=== PATIENT | male | born 1990 | race African-American/Black ===

== ENCOUNTER 2019-11-23 11:32 | Inpatient (IN) | payer OTHER ==
[2019-11-23 13:14] VITALS: BMI 31.8
--- NOTE | 2019-11-23 13:53 | HP ---
CIWA Score Nausea/Vomitin-Mild Nausea/No Vomiting Muscle Tremors: 2 Anxiety: 1-Mildly Anxious Agitation: 1-Slight > Activity Paroxysmal Sweats: No Perspiration Orientation: 0-Oriented Tacttile Disturbances: 0-None Auditory Disturbances: 0-None Visual Disturbances: 0-None - Admission Criteria OASAS Guidelines: Admission for Medically Managed Detox: Requires at least one of the followin. CIWA greater than 12 2. Seizures within the past 24 hours 3. Delirium tremens within the past 24 hours 4. Hallucinations within the past 24 hours 5. Acute intervention needed for co occurring medical disorder 6. Acute intervention needed for co occurring psychiatric disorder 7. Severe withdrawal that cannot be handled at a lower level of care (continued vomiting, continued diarrhea, abnormal vital signs) requiring intravenous medication and/or fluids 8. Admission [facility] Chief Complaint: alcohol detox Allergies/Adverse Reactions: Allergies Allergy/AdvReac Type Severity Reaction Status Date / Time Penicillins Allergy Difficulty Verified 11/23/19 13:15 Breathing vancomycin Allergy Hives Verified 11/23/19 13:15 History of Present Illness: 29yo with long h/o AUD, states started drinking at the age of 12, and steadily increased intake since age of 20. 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 Lives alone. Has medicare insurance. First time heree. First time to detox. Has been to AA meetings. PMH: myotonic Muscular dystrophy, asthma, kidney, hydradenitis occ, past h/o epilepsy PCP- Dr. Prieto Meds: albuterol, symbicort and Testosterone female to male transgender Alcohol- 1 pint to 1/5 day of cognac and whiskey, no alcohol related seizures/DT 's MJ: occ oxycontin- illicitly - Ebola screening Have you traveled outside of the country in the last 21 days: No Have you had contact with anyone from an Ebola affected area: No Do you have a fever: No - Review of Systems Constitutional: No Symptoms Reported EENT: reports: No Symptoms Reported Respiratory: reports: No Symptoms reported Cardiac: reports: No Symptoms Reported GI: reports: No Symptoms Reported : reports: No Symptoms Reported Musculoskeletal: reports: No Symptoms Reported Integumentary: reports: No Symptoms Reported Neuro: reports: No Symptoms reported Endocrine: reports: No Symptoms Reported Hematology: reports: No Symptoms Reported Psychiatric: reports: No Sypmtoms Reported Other Systems: Reviewed and Negative Patient History - Patient Medical History Hx Asthma: Yes Hx Hepatitis C: No Hx Depression: Yes Other Medical History: muscular dystrophy, PTSD - PPD History PPD to be Administered?: Yes - Smoking Cessation Smoking history: Never smoked - Substance & Tx. History Hx Alcohol Use: Yes Hx Substance Use: No Hx Substance Use Treatment: Yes - Substances abused Alcohol Substance route: Oral Frequency: Daily Amount used: 1pint -5th of whiskey/garland Age of first use: 12 Date of last use: 11/23/19 Marijuana/Hashish Substance route: Smoking Frequency: 1-2 times per week Amount used: 2 blunts Age of first use: 11 Date of last use: 11/09/19 Admission Physical Exam BHS - Vital Signs Vital Signs: Vital Signs - 24 hr 11/23/19 13:02 Temperature 97.5 F L Pulse Rate 95 H Respiratory 18 Rate Blood Pressure 148/96 - Physical General Appearance: Yes: Within Normal Limits HEENTM: Yes: Within Normal Limits Respiratory: Yes: Within Normal Limits, Lungs Clear Neck: Yes: Within Normal Limits Cardiology: Yes: Within Normal Limits, Regular Rate Abdominal: Yes: Within Normal Limits, Non Tender Back: Yes: Within Normal Limits, Normal Inspection Musculoskeletal: Yes: Within Normal Limits, full range of Motion, Gait Steady Neurological: Yes: Fully Oriented, Alert Integumentary: Yes: Other (small hydradentis lesions in L axilla- minimal drainage) Lymphatic: Yes: Other (small hydradentis lesions in L axilla) - Diagnostic (1) Alcohol use disorder Current Visit: Yes Status: Acute (2) Hydradenitis Current Visit: Yes Status: Acute (3) Muscular dystrophy Current Visit: Yes Status: Acute (4) Asthma Current Visit: Yes Status: Acute (5) Marijuana smoker, episodic Current Visit: Yes Status: Acute Breathalyzer - Breathalyzer Breathalyzer: 0.037 Urine Drug Screen - Test Device Lot number: [id number] Expiration date: 08/17/21 - Control Is test valid?: Yes - Results Drug screen NEGATIVE: No Urine drug screen results: THC-Marijuana, OXY-Oxycodone Inpatient Rehab Admission - Rehab Decision to Admit Inpatient rehab admission?: No
[2019-11-23] MEDS ORDERED: ACETAMINOPHEN 325 MG TABLET (FP) PO PRN ×2 (14:03)
[2019-11-23] MEDS ORDERED: chlordiazePOXIDE HCL 25 MG CAPSULE PO PRN (14:03)
[2019-11-23] MEDS ORDERED: MAGNESIUM CITRATE 300 ML BOTTLE PO PRN (14:03)
[2019-11-23] MEDS ORDERED: MAGNESIUM HYDROX 2400MG/30ML ORAL SUSPENSION 30 ML CUP PO PRN (14:03)
[2019-11-23] MEDS ORDERED: BISMUTH SUBSALICYLATE 524 MG/30 ML UD PO PRN (14:03)
[2019-11-23] MEDS ORDERED: MAG HYDROX/AL HYDROX/SIMETH 30 ML UNIT-DOSE CUP PO PRN (14:03)
[2019-11-23] MEDS ORDERED: IBUPROFEN 400 MG TABLET (FP) PO PRN (14:03)
[2019-11-23] MEDS ORDERED: MENTHOL/PHENOL 1 EACH UD MM PRN (14:03)
[2019-11-23] MEDS ORDERED: chlordiazePOXIDE HCL 25 MG CAPSULE PO ONE (16:30)
[2019-11-23] MEDS: ALBUTEROL SO4 8 GM HFA INHALER IH PRN (20:45)
[2019-11-23] MEDS: chlordiazePOXIDE HCL 25 MG CAPSULE PO SCH (22:17)
[2019-11-23] MEDS: MELATONIN 5 MG TABLETS PO PRN (22:18)
[2019-11-23] MEDS: THIAMINE HCL 100 MG TABLET (FP) PO SCH (22:18)
[2019-11-23] MEDS: BUDESONIDE/FORMETEROL FUMARATE 160/4.5 mcg INHALER IH SCH (22:41)
[2019-11-24] MEDS: chlordiazePOXIDE HCL 25 MG CAPSULE PO SCH ×4 (06:01→22:08)
[2019-11-24] MEDS: BUDESONIDE/FORMETEROL FUMARATE 160/4.5 mcg INHALER IH SCH ×2 (09:03→22:07)
[2019-11-24] MEDS: PRENATAL VITAMINS W/ FOLIC ACID TABLET (FP) PO SCH (09:03)
--- NOTE | 2019-11-24 09:18 | PN ---
S CIWA - CIWA Score Nausea/Vomitin-Mild Nausea/No Vomiting Muscle Tremors: 1-None Visible, but [place] Anxiety: 0-No Anxiety, at Ease Agitation: 0-Normal Activity Paroxysmal Sweats: No Perspiration Orientation: 0-Oriented Tacttile Disturbances: 0-None Auditory Disturbances: 0-None Visual Disturbances: 0-None Headache: 0-None Present CIWA-Ar Total Score: 2 BHS Progress Note (SOAP) Subjective: pt states librium 50mg too strong for him- making him lethargic O: Vital Signs - 24 hr 11/23/19 11/23/19 11/23/19 13:02 17:05 21:21 Temperature 97.5 F L 97.7 F 98.1 F Pulse Rate 95 H 97 H 104 H Respiratory 18 18 18 Rate Blood Pressure 148/96 150/98 146/86 11/24/19 11/24/19 11/24/19 00:30 03:30 06:25 Temperature 97.3 F L Pulse Rate 67 Respiratory 18 18 18 Rate Blood Pressure 107/68 labs pending a/p: AUD- continue detox protocol- decreased librium dose to 25 mg prn pain meds
[2019-11-24 09:38] LABS: BASO % 0.7 % (0-2.0); EOS % 8.3 % (0-4.5); HEMATOCRIT 48.3 % (35.4-49); HEMOGLOBIN 15.8 GM/dL (11.7-16.9); LYMPH % 37.2 % (8-40); MCH 28.6 pg (25.7-33.7); MCHC 32.7 g/dl (32.0-35.9); MEAN CELL VOLUME 87.5 fl (80-96); MEAN PLT VOLUME 7.9 fl (7.5-11.1); MONO % 6.6 % (3.8-10.2); NEUT % 47.2 % (42.8-82.8); PLATELET COUNT 181 K/MM3 (134-434); RBC 5.52 M/mm3 (4.00-5.60); RDW 12.9 % (11.9-15.9); WHITE BLOOD COUNT 4.2 K/mm3 (4.0-10.0)
[2019-11-24 11:07] LABS: ALBUMIN 3.6 g/dl (3.4-5.0); BILIRUBIN,TOTAL 0.8 mg/dL (0.2-1); BLOOD UREA NITROGEN 9.1 mg/dL (7-18); CALCIUM 9.7 mg/dL (8.5-10.1); CREATININE 0.7 mg/dL (0.55-1.3); POTASSIUM 3.7 mmol/L (3.5-5.1); TOT PROT 6.9 g/dl (6.4-8.2)
[2019-11-24] MEDS: THIAMINE HCL 100 MG TABLET (FP) PO SCH (22:08)
[2019-11-24] MEDS: MELATONIN 5 MG TABLETS PO PRN (22:08)
[2019-11-25] MEDS: chlordiazePOXIDE HCL 25 MG CAPSULE PO SCH ×4 (05:37→22:03)
[2019-11-25] MEDS: ALBUTEROL SO4 8 GM HFA INHALER IH PRN (05:38)
[2019-11-25] MEDS: PRENATAL VITAMINS W/ FOLIC ACID TABLET (FP) PO SCH (10:31)
[2019-11-25] MEDS: BUDESONIDE/FORMETEROL FUMARATE 160/4.5 mcg INHALER IH SCH ×2 (10:31→22:02)
--- NOTE | 2019-11-25 11:12 | PN ---
S CIWA - CIWA Score Nausea/Vomitin-Mild Nausea/No Vomiting Muscle Tremors: 2 Anxiety: 2 Agitation: 2 Paroxysmal Sweats: No Perspiration Orientation: 0-Oriented Tacttile Disturbances: 1-Very Mild Itch/Numbness Auditory Disturbances: 0-None Visual Disturbances: 0-None Headache: 1-Very Mild CIWA-Ar Total Score: 9 S Progress Note (SOAP) Subjective: alert,irritable,anxious,interrupted sleep,tremor Objective: 11/25/19 11:10 Vital Signs Temperature 97.7 F 11/25/19 09:15 Pulse Rate 84 11/25/19 09:15 Respiratory Rate 18 11/25/19 09:15 Blood Pressure 123/69 11/25/19 09:15 O2 Sat by Pulse Oximetry (%) Laboratory Last Values WBC 4.2 K/mm3 (4.0-10.0) 11/24/19 08:00 RBC 5.52 M/mm3 (4.00-5.60) 11/24/19 08:00 Hgb 15.8 GM/dL (11.7-16.9) 11/24/19 08:00 Hct 48.3 % (35.4-49) 11/24/19 08:00 MCV 87.5 fl (80-96) 11/24/19 08:00 MCH 28.6 pg (25.7-33.7) 11/24/19 08:00 MCHC 32.7 g/dl (32.0-35.9) 11/24/19 08:00 RDW 12.9 % (11.9-15.9) 11/24/19 08:00 Plt Count 181 K/MM3 (134-434) 11/24/19 08:00 MPV 7.9 fl (7.5-11.1) 11/24/19 08:00 Absolute Neuts (auto) 2.0 K/mm3 (1.5-8.0) 11/24/19 08:00 Neutrophils % 47.2 % (42.8-82.8) 11/24/19 08:00 Lymphocytes % 37.2 % (8-40) 11/24/19 08:00 Monocytes % 6.6 % (3.8-10.2) 11/24/19 08:00 Eosinophils % 8.3 % (0-4.5) H 11/24/19 08:00 Basophils % 0.7 % (0-2.0) 11/24/19 08:00 Nucleated RBC % 0 % (0-0) 11/24/19 08:00 Sodium 136 mmol/L (136-145) 11/24/19 08:00 Potassium 3.7 mmol/L (3.5-5.1) 11/24/19 08:00 Chloride 101 mmol/L (98-107) 11/24/19 08:00 Carbon Dioxide 27 mmol/L (21-32) 11/24/19 08:00 Anion Gap 7 MMOL/L (8-16) L 11/24/19 08:00 BUN 9.1 mg/dL (7-18) 11/24/19 08:00 Creatinine 0.7 mg/dL (0.55-1.3) 11/24/19 08:00 Est GFR (CKD-EPI)AfAm 146.77 11/24/19 08:00 Est GFR (CKD-EPI)NonAf 126.64 11/24/19 08:00 Random Glucose 87 mg/dL (74-106) 11/24/19 08:00 Calcium 9.7 mg/dL (8.5-10.1) 11/24/19 08:00 Total Bilirubin 0.8 mg/dL (0.2-1) 11/24/19 08:00 AST 87 U/L (15-37) H 11/24/19 08:00 ALT 142 U/L (13-61) H 11/24/19 08:00 Alkaline Phosphatase 84 U/L (45-117) 11/24/19 08:00 Total Protein 6.9 g/dl (6.4-8.2) 11/24/19 08:00 Albumin 3.6 g/dl (3.4-5.0) 11/24/19 08:00 RPR Titer Nonreactive (NONREACTIVE) 11/24/19 08:00 HIV 1&2 Antibody Screen Negative 11/24/19 08:00 HIV P24 Antigen Negative 11/24/19 08:00 Assessment: 11/25/19 11:11 withdrawal symptom Plan: continue detox librium regimen,ast 87,alt 142
[2019-11-25] MEDS: METHOCARBAMOL 500 MG TABLET PO PRN (15:48)
[2019-11-25] MEDS: MELATONIN 5 MG TABLETS PO PRN (22:03)
[2019-11-25] MEDS: THIAMINE HCL 100 MG TABLET (FP) PO SCH (22:03)
[2019-11-26] MEDS ORDERED: chlordiazePOXIDE HCL 10 MG CAPSULE PO PRN
[2019-11-26] MEDS: chlordiazePOXIDE HCL 10 MG CAPSULE PO SCH ×4 (05:34→22:28)
[2019-11-26] MEDS: PRENATAL VITAMINS W/ FOLIC ACID TABLET (FP) PO SCH (09:07)
[2019-11-26] MEDS: hydrOXYzine PAMOATE 25 MG CAPSULE (FP) PO PRN (09:09)
--- NOTE | 2019-11-26 09:48 | PN ---
S CIWA - CIWA Score Nausea/Vomitin-Mild Nausea/No Vomiting Muscle Tremors: 2 Anxiety: 2 Agitation: 1-Slight > Activity Paroxysmal Sweats: 2 Orientation: 0-Oriented Tacttile Disturbances: 1-Very Mild Itch/Numbness Auditory Disturbances: 0-None Visual Disturbances: 0-None Headache: 1-Very Mild CIWA-Ar Total Score: 10 BHS Progress Note (SOAP) Subjective: c/o of chills, sweats, interrupted sleep, body aches Objective: 11/26/19 09:47 Vital Signs Temperature 97.5 F L 11/26/19 09:21 Pulse Rate 82 11/26/19 09:21 Respiratory Rate 18 11/26/19 09:21 Blood Pressure 120/71 11/26/19 09:21 O2 Sat by Pulse Oximetry (%) Laboratory Last Values WBC 4.2 K/mm3 (4.0-10.0) 11/24/19 08:00 RBC 5.52 M/mm3 (4.00-5.60) 11/24/19 08:00 Hgb 15.8 GM/dL (11.7-16.9) 11/24/19 08:00 Hct 48.3 % (35.4-49) 11/24/19 08:00 MCV 87.5 fl (80-96) 11/24/19 08:00 MCH 28.6 pg (25.7-33.7) 11/24/19 08:00 MCHC 32.7 g/dl (32.0-35.9) 11/24/19 08:00 RDW 12.9 % (11.9-15.9) 11/24/19 08:00 Plt Count 181 K/MM3 (134-434) 11/24/19 08:00 MPV 7.9 fl (7.5-11.1) 11/24/19 08:00 Absolute Neuts (auto) 2.0 K/mm3 (1.5-8.0) 11/24/19 08:00 Neutrophils % 47.2 % (42.8-82.8) 11/24/19 08:00 Lymphocytes % 37.2 % (8-40) 11/24/19 08:00 Monocytes % 6.6 % (3.8-10.2) 11/24/19 08:00 Eosinophils % 8.3 % (0-4.5) H 11/24/19 08:00 Basophils % 0.7 % (0-2.0) 11/24/19 08:00 Nucleated RBC % 0 % (0-0) 11/24/19 08:00 Sodium 136 mmol/L (136-145) 11/24/19 08:00 Potassium 3.7 mmol/L (3.5-5.1) 11/24/19 08:00 Chloride 101 mmol/L (98-107) 11/24/19 08:00 Carbon Dioxide 27 mmol/L (21-32) 11/24/19 08:00 Anion Gap 7 MMOL/L (8-16) L 11/24/19 08:00 BUN 9.1 mg/dL (7-18) 11/24/19 08:00 Creatinine 0.7 mg/dL (0.55-1.3) 11/24/19 08:00 Est GFR (CKD-EPI)AfAm 146.77 11/24/19 08:00 Est GFR (CKD-EPI)NonAf 126.64 11/24/19 08:00 Random Glucose 87 mg/dL (74-106) 11/24/19 08:00 Calcium 9.7 mg/dL (8.5-10.1) 11/24/19 08:00 Total Bilirubin 0.8 mg/dL (0.2-1) 11/24/19 08:00 AST 87 U/L (15-37) H 11/24/19 08:00 ALT 142 U/L (13-61) H 11/24/19 08:00 Alkaline Phosphatase 84 U/L (45-117) 11/24/19 08:00 Total Protein 6.9 g/dl (6.4-8.2) 11/24/19 08:00 Albumin 3.6 g/dl (3.4-5.0) 11/24/19 08:00 RPR Titer Nonreactive (NONREACTIVE) 11/24/19 08:00 HIV 1&2 Antibody Screen Negative 11/24/19 08:00 HIV P24 Antigen Negative 11/24/19 08:00 d/c acetaminophen elevate LFTS d/t alcohol abuse Assessment: 11/26/19 09:50 Patient Aox3 no acute distress, anxious full ROM ambulating in the unit withdrawal sx Plan: increase fluids continue detox repeat cmp d/t elevated LFTs continue to monitor
[2019-11-26] MEDS: BUDESONIDE/FORMETEROL FUMARATE 160/4.5 mcg INHALER IH SCH ×2 (10:03→22:14)
[2019-11-26] MEDS: METHOCARBAMOL 500 MG TABLET PO PRN ×2 (13:12→22:15)
[2019-11-26 18:01] LABS: ALBUMIN 3.7 g/dl (3.4-5.0); BILIRUBIN,TOTAL 0.6 mg/dL (0.2-1); BLOOD UREA NITROGEN 6.9 mg/dL (7-18); CALCIUM 9.8 mg/dL (8.5-10.1); CREATININE 0.8 mg/dL (0.55-1.3); POTASSIUM 4.2 mmol/L (3.5-5.1)
[2019-11-26] MEDS: THIAMINE HCL 100 MG TABLET (FP) PO SCH (22:14)
[2019-11-26] MEDS: MELATONIN 5 MG TABLETS PO PRN (22:14)
[2019-11-27] MEDS: chlordiazePOXIDE HCL 10 MG CAPSULE PO SCH ×2 (05:47→17:41)
[2019-11-27] MEDS: METHOCARBAMOL 500 MG TABLET PO PRN ×2 (05:47→12:56)
[2019-11-27] MEDS: PRENATAL VITAMINS W/ FOLIC ACID TABLET (FP) PO SCH (10:14)
[2019-11-27] MEDS: BUDESONIDE/FORMETEROL FUMARATE 160/4.5 mcg INHALER IH SCH ×2 (10:14→21:13)
[2019-11-27] MEDS: hydrOXYzine PAMOATE 25 MG CAPSULE (FP) PO PRN ×2 (10:33→21:13)
--- NOTE | 2019-11-27 10:42 | PN ---
S CIWA - CIWA Score Nausea/Vomitin Muscle Tremors: 2 Anxiety: 3 Agitation: 0-Normal Activity Paroxysmal Sweats: 1-Minimal Palms Moist Orientation: 0-Oriented Tacttile Disturbances: 1-Very Mild Itch/Numbness Auditory Disturbances: 0-None Visual Disturbances: 0-None Headache: 1-Very Mild CIWA-Ar Total Score: 10 S Progress Note (SOAP) Subjective: c/o of feeling, anxious, chills, nausea, interrupted sleep Objective: 11/27/19 10:41 Vital Signs Temperature 9707 F H 11/27/19 10:07 Pulse Rate 84 11/27/19 10:07 Respiratory Rate 18 11/27/19 10:07 Blood Pressure 135/71 11/27/19 10:07 O2 Sat by Pulse Oximetry (%) Laboratory Last Values WBC 4.2 K/mm3 (4.0-10.0) 11/24/19 08:00 RBC 5.52 M/mm3 (4.00-5.60) 11/24/19 08:00 Hgb 15.8 GM/dL (11.7-16.9) 11/24/19 08:00 Hct 48.3 % (35.4-49) 11/24/19 08:00 MCV 87.5 fl (80-96) 11/24/19 08:00 MCH 28.6 pg (25.7-33.7) 11/24/19 08:00 MCHC 32.7 g/dl (32.0-35.9) 11/24/19 08:00 RDW 12.9 % (11.9-15.9) 11/24/19 08:00 Plt Count 181 K/MM3 (134-434) 11/24/19 08:00 MPV 7.9 fl (7.5-11.1) 11/24/19 08:00 Absolute Neuts (auto) 2.0 K/mm3 (1.5-8.0) 11/24/19 08:00 Neutrophils % 47.2 % (42.8-82.8) 11/24/19 08:00 Lymphocytes % 37.2 % (8-40) 11/24/19 08:00 Monocytes % 6.6 % (3.8-10.2) 11/24/19 08:00 Eosinophils % 8.3 % (0-4.5) H 11/24/19 08:00 Basophils % 0.7 % (0-2.0) 11/24/19 08:00 Nucleated RBC % 0 % (0-0) 11/24/19 08:00 Sodium 137 mmol/L (136-145) 11/26/19 13:00 Potassium 4.2 mmol/L (3.5-5.1) 11/26/19 13:00 Chloride 104 mmol/L (98-107) 11/26/19 13:00 Carbon Dioxide 27 mmol/L (21-32) 11/26/19 13:00 Anion Gap 7 MMOL/L (8-16) L 11/26/19 13:00 BUN 6.9 mg/dL (7-18) L 11/26/19 13:00 Creatinine 0.8 mg/dL (0.55-1.3) 11/26/19 13:00 Est GFR (CKD-EPI)AfAm 138.93 11/26/19 13:00 Est GFR (CKD-EPI)NonAf 119.87 11/26/19 13:00 Random Glucose 119 mg/dL (74-106) H 11/26/19 13:00 Calcium 9.8 mg/dL (8.5-10.1) 11/26/19 13:00 Total Bilirubin 0.6 mg/dL (0.2-1) 11/26/19 13:00 AST 97 U/L (15-37) H 11/26/19 13:00 ALT 195 U/L (13-61) H 11/26/19 13:00 Alkaline Phosphatase 106 U/L (45-117) 11/26/19 13:00 Total Protein 7.0 g/dl (6.4-8.2) 11/26/19 13:00 Albumin 3.7 g/dl (3.4-5.0) 11/26/19 13:00 RPR Titer Nonreactive (NONREACTIVE) 11/24/19 08:00 HIV 1&2 Antibody Screen Negative 11/24/19 08:00 HIV P24 Antigen Negative 11/24/19 08:00 Assessment: 11/27/19 11:08 Patient is AOx3, no acute distress, anxious no adventitious breath sounds full ROM no gait disturbance withdrawal sx Plan: if stable d/c in AM increase fluids continue detox continue to monitor
[2019-11-27] MEDS: BACLOFEN 10 MG TABLET (FP) PO SCH ×2 (11:12→21:13)
[2019-11-27] MEDS: MELATONIN 5 MG TABLETS PO PRN (21:13)
[2019-11-27] MEDS: THIAMINE HCL 100 MG TABLET (FP) PO SCH (21:50)
[2019-11-28] MEDS ORDERED: chlordiazePOXIDE HCL 10 MG CAPSULE PO ONE (05:00)
[2019-11-28] MEDS: METHOCARBAMOL 500 MG TABLET PO PRN (06:24)
[2019-11-28 06:38] VITALS: BP 114/63; PULSE 79; TEMP 97.5
--- NOTE | 2019-11-28 09:27 | DS ---
[facility] Detox Discharge Summary Admission Date: 11/23/19 Discharge Date: 11/28/19 - History Present History: Alcohol Dependence - Physical Exam Results Vital Signs: Vital Signs Temperature 97.5 F L 11/28/19 06:38 Pulse Rate 79 11/28/19 06:38 Respiratory Rate 18 11/28/19 06:38 Blood Pressure 114/63 11/28/19 06:38 O2 Sat by Pulse Oximetry (%) - Treatment Hospital Course: Detox Protocol Followed, Detoxed Safely, Responded well, Discharged Condition Good, Rehab Referral Accepted Patient has Accepted a Rehab Referral to: referral provided - Medication Discharge Medications: Ambulatory Orders Albuterol Sulfate Inhaler - [Ventolin Hfa Inhaler -] 1 - 2 inh PO Q4H PRN Budesonide/Formeterol Fumarate [SYMBICORT 160/4.5mcg -] 1 inh PO BID 11/23/19 - Diagnosis (1) Alcohol use disorder Current Visit: Yes Status: Chronic (2) Asthma Current Visit: Yes Status: Chronic Qualifiers: Asthma severity: mild Asthma persistence: intermittent (3) Hydradenitis Current Visit: Yes Status: Acute (4) Marijuana smoker, episodic Current Visit: Yes Status: Acute (5) Muscular dystrophy Current Visit: Yes Status: Acute - AMA Did Patient Leave Against Medical Advice: No
== END 2019-11-28 10:25 | disposition home or self-care (01) | DRG 897 ==
LOC: YASAS 11:32 → Y6N 15:15
PROVIDERS: ADMIT Allergy & Immunology; ATTEND Allergy & Immunology
PROC: HZ2ZZZZ Detoxification Services for Substance Abuse Treatment (ICD-10-PCS; principal; 2019-11-23)
DX: F10.230 Alcohol dependence with withdrawal, uncomplicated (principal); F12.90 Cannabis use, unspecified, uncomplicated; J45.20 Mild intermittent asthma, uncomplicated; L73.2 Hidradenitis suppurativa; G71.11 Myotonic muscular dystrophy; G40.909 Epilepsy, unspecified, not intractable, without status epilepticus; Z88.0 Allergy status to penicillin; Z88.1 Allergy status to other antibiotic agents
CPT/HCPCS: 36415; 80053; 85025; 86593; 87389; J0475